=== PATIENT | female | born 1965 | race Caucasian/White ===

== ENCOUNTER 2025-03-11 22:36 | Emergency (ER) | payer MEDICAID, SELFPAY ==
[2025-03-11 22:41] VITALS: BP 114/77; PULSE 138; RESP 18; TEMP 36.4; O2SAT 95; BMI 30.7
--- OUTSIDE RECORDS SUMMARY | 2025-03-11 23:33 | XMS_ITS | Clinical Summary ---
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 Starting tomorrow. 4 Active ticagrelor (BRILINTA) 90 MG tabletIndication s:ST elevation myocardial infarction involving right coronary artery (H) Take 1 tablet (90 mg) by mouth 2 times daily. Dose to start this evening. 180 tablet 3 4 Active atorvastatin (LIPITOR) 80 MG tabletIndication s:ST elevation myocardial infarction involving right coronary artery (H) Take 1 tablet (80 mg) by mouth daily. 90 tablet 3 4 Active lisinopril (ZESTRIL) 5 MG tabletIndication s:ST elevation myocardial infarction (STEMI), unspecified artery (H) Take 1 tablet (5 mg) by mouth daily. 30 tablet 4 Active metoprolol tartrate (LOPRESSOR) 25 MG tabletIndication s:ST elevation myocardial infarction (STEMI), unspecified artery (H) Take 1 tablet (25 mg) by mouth 2 times daily. 60 tablet 4 Active Active Problems Problem Noted Date Diagnosed Date Percutaneous transluminal coronary angioplasty s tatus 06/01/2024 ST elevation myocardial infa rction involving right coronary artery 06/01/2024 Cervical incompetence, delivered 03/11/2002 Tobacco use disorder 03/11/2002 Family History Medical History Relation Comments Heart Disease Father [place] age 57 Hypertension Father Cancer No family hx of Relation Status Comments Father Social History Tobacco Use Types Packs/Day Years Used Date Smoking Tobacco: Every Day Cigarettes 0.5 10 Alcohol Use Standard Drinks/Week Comments No 0 (1 standard drink = 0.6 oz pur e alcohol) Food Insecurity Answer Date Recorded Within the past 12 months, d id you worry that your food would run out before you got money to buy more? No 06/02/2024 Within the past 12 months, d id the food you bought just not last and you didn t have money to get more? No 06/02/2024 Housing Stability Answer Date Recorded Do you have housing? (Denilson judd is defined as stable permanent housing and does not include staying outside in a car, in a tent, in an abandoned building, in an overnight [place] [facility], or couch-surfing.) No 06/02/2024 Are you worried about losing your housing? No 06/02/2024 Financial Resource Strain Answer Date R ecorded Within the past 12 months, h ave you or your family members you live with been unable to get utilities (heat, electricity) when it was really needed? No 06/02/2024 Transportation Needs Answer Date Record ed Within the past 12 months, h as lack of transportation kept you from medical appointments, getting your medicines, non-medical meetings or appointments, work, or from getting things that you need? No 06/02/2024 Interpersonal Safety Answer Date Record ed Do you feel physically and e motionally safe where you currently live? Yes 06/02/2024 Within the past 12 months, h ave you been hit, slapped, kicked or otherwise physically hurt by someone? No 06/02/2024 Within the past 12 months, h ave you been humiliated or emotionally abused in other ways by your partner or ex-partner? No 06/02/2024 Comments No Sex and Gender Information Value Date Recorded Sex Assigned at Not on file Legal Sex Female 3:23 AM AEROPHYSICIST Gender Identity Not on file Sexual Orientation Not on file Last Filed Vital Signs Vital Sign Reading Time Taken Comments Blood Pressure 121/73 06/03/2024 7:58 AM AEROPHYSICIST Pulse 60 06/03/2024 7:58 AM AEROPHYSICIST Temperature 36.6 C (97.8 F) 06/03/2024 7:58 AM AEROPHYSICIST Respiratory Rate 16 06/03/2024 7:58 AM AEROPHYSICIST Oxygen Saturation 96% 06/03/2024 7:58 AM AEROPHYSICIST Inhaled Oxygen Concentration - - Weight 79.4 kg (175 lb 0.7 oz) 06/01/2024 9:08 A M AEROPHYSICIST Height 157.5 cm (5' 2) 06/01/2024 11:48 AM AEROPHYSICIST Body Mass Index 32.02 06/01/2024 9:08 AM AEROPHYSICIST Plan of Treatment Health Maintenance Due Date Last Done Comments ADVANCE CARE PLANNING 1967 ANNUAL REVIEW OF HM ORDERS 1967 CT COLONOGRAPHY 1967 FIT 1967 FLEX SIG 1967 NICOTINE/TOBACCO CESSATION COUNSELING Q 1 YR 1967 sDNA (Cologuard) 1967 YEARLY PREVENTIVE VISIT 1970 COLONOSCOPY 1977 COLORECTAL CANCER SCREENING 1977 HIV SCREENING 1982 HEPATITIS C SCREENING 1985 HEPATITIS B VACCINE (1 of 3 - 19+ 3-dose series) 1986 PNEUMOCOCCAL VACCINE 50+ YEARS (1 of 2 - PCV) 1986 PAP 1988 DTAP/TDAP/TD VACCINE (1 - Tdap) 1992 MAMMO SCREENING 05/12/2010 05/12/2008 LUNG CANCER SCREENING 2017 ZOSTER VACCINE (1 of 2) 2017 COVID-19 VACCINE (1 - 2023-2 5 season) 2024 PHQ-2 (once per calendar year) 2024 INFLUENZA VACCINE (#1) 2025 LIPID 06/01/2025 06/01/2024 DIABETES SCREENING 06/03/2027 06/03/2024, 06/02/2024, 06/01/2024 HPV VACCINE (No Doses Required) Completed MENINGITIS VACCINE Aged Out No longer eligible based on patient's age to complete this topic Medical Devices Implanted Type Area Interventional Cardiologist Device Identifier Shelf Expiration Date Model / Serial / Lot Stent Coronary Angus Synergy Xd Mr Us [id number] - [id number] Implanted:Qty: 1 on 06/01/2024 at [facility] [employer] (ANGUS) [employer] 09/29/2024 [id number] / / [id number] Procedures Procedure Name Priority Date/Time Associated Diagnosis Comments BASIC METABOLIC PANEL Routine 06/03/2024 8:11 AM AEROPHYSICIST LIPID PROFILE Add-On 06/01/2024 7:43 AM AEROPHYSICIST HC CAD, DIAGNOSTIC MAMMO, W/WO DIGITIZATION Routine 05/12/2008 1:39 PM CDT from Last 3 Months or Most Recently Relevant to Health Maintenance Results * Basic metabolic panel (06/03/2024 8:11 AM AEROPHYSICIST) Sodium 139 135 - 145 mmol/L 06/03/2024 8:53 AM [facility] Potassium 3.8 3.4 - 5.3 mmol/L 06/03/2024 8:53 AM [facility] Chloride 106 98 - 107 mmol/L 06/03/2024 8:53 AM [facility] Carbon Dioxide (CO2) 22 22 - 29 mmol/L 06/03/2024 8:53 AM [facility] Anion Gap 11 7 - 15 mmol/L 06/03/2024 8:53 AM [facility] Urea Nitrogen 10.3 6.0 - 20.0 mg/dL 06/03/2024 8:53 AM [facility] Creatinine 0.87 0.51 - 0.95 mg/dL 06/03/2024 8:53 AM [facility] GFR Estimate 78 >60 mL/min/1.7 3m2 06/03/2024 8:53 AM [facility] Comment:eGFR calculated usin 2020 CKD-EPI equation. Calcium 8.8 8.8 - 10.4 mg/dL 06/03/2024 8:53 AM [facility] Comment:Reference intervals for this test were updated on 02/09/2024 to reflect our healthy population more accurately. There may be differences in the flagging of prior results with similar values performed with this method. Those prior results can be interpreted in the context of the updated reference intervals. Glucose 93 70 - 99 mg/dL 06/03/2024 8:53 AM AEROPHYSICIST [facility] Blood STRUCTURE OF LEFT HAND / Unknown Venipuncture / Unknown 06/03/2024 8:11 AM AEROPHYSICIST 06/03/2024 8:26 AM AEROPHYSICIST us Henok Mcgill DO LAB - BLOOD ORDERABLES Fi nal Result [facility] [address] Lab (1st floor, no room number) [place] [id number] * (ABNORMAL) Lipid Profile (06/01/2024 7:43 AM AEROPHYSICIST) Cholesterol 179 <200 mg/dL 06/01/2024 5:38 PM AEROPHYSICIST [facility] Triglycerides 71 <150 mg/dL 06/01/2024 5:38 PM AEROPHYSICIST [facility] Direct Measure HDL 42(L) >=50 mg/dL 06/01/2024 5:38 PM AEROPHYSICIST [facility] LDL Cholesterol Calculated 123(H) <100 mg/dL 06/01/2024 5:38 PM AEROPHYSICIST [facility] Non HDL Cholesterol 137(H) <130 mg/dL 06/01/2024 5:38 PM AEROPHYSICIST [facility] Blood BLOOD SPECIMEN / Unknown Venipuncture / Unknown 06/01/2024 7:43 AM AEROPHYSICIST 06/01/2024 7:52 AM AEROPHYSICIST Narrative [facility] - 06/01/2024 5:38 PM AEROPHYSICIST Cholesterol Desirable: < 200 mg/dL Borderline High: 200 - 239 mg/dL High: >= 240 mg/dL Triglycerides Normal: < 150 mg/dL Borderline High: 150 - 199 mg/dL High: 200-499 mg/dL Very High: >= 500 mg/dL Direct Measure HDL Female: >= 50 mg/dL Male: >= 40 mg/dL LDL Cholesterol Desirable: < 100 mg/dL Above Desirable: 100 - 129 mg/dL Borderline High: 130 - 159 mg/dL High: 160 - 189 mg/dL Very High: >= 190 mg/dL Non HDL Cholesterol Desirable: < 130 mg/dL Above Desirable: 130 - 159 mg/dL Borderline High: 160 - 189 mg/dL High: 190 - 219 mg/dL Very High: >= 220 mg/dL us Ana Rosales PA-C LAB - BLOOD ORDERABLES F inal Result [facility] [address] [facility]. [facility] Building, Room [address] [place] [id number], [facility] * COMPUTER AIDED MAMMOGRAPHY, DIAGNOSTIC (05/12/2008 1:39 PM CDT) Anatomical Region Laterality Modality Other 05/12/2008 1:39 PM CDT Impressions 05/12/2008 2:12 PM CDT EXAM: Diagnostic bilateral digital mammogram. Right breast ultrasound. HISTORY/PREVIOUS MAMMOGRAPHY: Right breast pain. BREAST PARENCHYMA: Heterogeneously dense FINDINGS: There is a faint oval density in the upper right breast on mammography. Ultrasound demonstrates a cluster of cysts versus a thinly septated cyst at the 11:00 position of the breast 3 cm minimal. This is felt to be benign. This corresponds with the mammographic abnormality. Otherwise negative bilateral exam. No abnormality identified in the region of pain in the upper-outer right breast. Any further evaluation should be based on clinical findings and clinical suspicion. IMPRESSION: Category 2. Benign finding. Note: CAD (computer aided diagnosis) was utilized in interpretation of this mammogram. Lou Frazier MD MAMMOGRAPHY Edite d from Last 3 Months or Most Recently Relevant to Health Maintenance Insurance [employer] Advance Directives For more information, please contact: [phone] * Full Code (Latest Code Status on File) Date Activated Date Inactivated Comments 06/01/2024 10:40 AM 06/03/2024 1:57 PM All basic a nd advanced life-sustaining interventions are performed as appropriate Question Answer Comments Code status determined by: Discussion with ankure nt/ legal decision maker Care Teams Loft Patternmaker Relationship Specialty Start Date End Date No Ref-Primary, Physician PCP - General 06/01/24
--- OUTSIDE RECORDS SUMMARY | 2025-03-11 23:33 | XMS_ITS | Clinical Summary ---
Author Organization [facility] Address [address] [place] [id number] Care Team Providers Care Superintendent Production Name Role Phone Pcp, No Primary Care Provider Unavailabl e Allergies Active Allergy Reactions Criticality Noted Date Comments Mushroom Hives,Edema 02/04/2025 Medications aspirin chewable 81 mg tablet Chew 81 mg by mouth once daily with a meal. 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 02/22/2025 Overview (02/22/2025): 02/15/25 HSIL suspicious for Invasion Provider plan : Referral to [facility] Encounters Date Type Department Care Team Description 03/09/2025 Telephone [facility] [address] [place] [address] Frederick Eng MD PIERCE FORM NEEDED 03/07/2025 Patient Outreach [facility] Care Management - Care Management Navigation/[facility] [address] [place] [address] Elliot Mo[facility] Navigation 02/28/2025 1:00 PM CDT Ancillary Procedure [facility] [address] [place] [phone] 02/28/2025 Travel 02/23/2025 Travel 02/22/2025 Lab Requisition [facility] [phone] Shilpa Espino MD 02/22/2025 Transcribe Orders [facility] MD [phone] Shilpa Espino MD 02/22/2025 Telephone [facility] [address] [place] [address] Frederick Eng MD Results 02/20/2025 Telephone [facility] [address] [place] [address] Frederick Eng MD Pap Plan 02/15/2025 3:00 PM CDT Office Visit [facility] [address] [place] [address] Frederick Eng MD Consult 02/14/2025 Travel 02/06/2025 Telephone [facility] [address] [place] [address] Yanira Leblanc PA Results 02/04/2025 3:55 PM CDT Office Visit [facility] [address] [facility] [phone] Eulalio Herman PA Hematuria 02/04/2025 Travel from Last 3 Months Social History Tobacco Use Types Packs/Day Years Used Date Smoking Tobacco: Never Smokeless Tobacco: Never Tobacco Cessation:Counseling Given: Not Answered Alcohol Use Standard Drinks/Week Comments Not Currently 0 (1 standard drink = 0.6 oz pur e alcohol) PHQ-2 Answer Date Recorded PHQ-2 TOTAL SCORE 1 02/15/2025 Social Connections Answer Date Recorded Do you often feel lonely or isolated from those around you? 0 02/04/2025 Financial Resource Strain Answer Date R ecorded Difficulty of Paying Living Expenses 1 02/04/2025 Difficulty of Paying Living Expenses 2 02/04/2025 Food Insecurity Answer Date Recorded Do you worry your food will run out before you are able to buy more? 1 02/04/2025 Transportation Needs Answer Date Record ed Does lack of transportation keep you from medica l appointments? 1 02/04/2025 Does lack of transportation keep you from work, meetings or getting things that you need? 1 02/04/2025 Housing Stability Answer Date Recorded What is your housing situation today? 1 02/04/2025 Utilities Answer Date Recorded Do you have trouble paying f or utilities (for example, heat, electricity, water, phone)? 1 02/04/2025 Comments No Sex and Gender Information Value Date Recorded Sex Assigned at Not on file Legal Sex Female 3:50 PM CDT Gender Identity Not on file Sexual Orientation Not on file Obstetrics History Last Filed Vital Signs Vital Sign Reading Time Taken Comments Blood Pressure 132/74 02/15/2025 3:03 PM CDT Pulse 107 02/04/2025 4:08 PM CDT Temperature 36.1 C (97 F) 02/04/2025 4:08 PM CDT Respiratory Rate 22 02/04/2025 4:08 PM CDT Oxygen Saturation 98% 02/04/2025 4:08 PM CDT Inhaled Oxygen Concentration - - Weight 78.3 kg (172 lb 9.6 oz) 02/15/2025 3:03 P M CDT Height 157.5 cm (5' 2) 02/15/2025 3:03 PM CDT Body Mass Index 31.57 02/15/2025 3:03 PM CDT Plan of Treatment Upcoming Encounters Date Type Department Care Team (Late st Contact Info) Description 03/21/2025 11:00 AM CDT Appointment [facility] [address] [place] [address] Health Maintenance Due Date Last Done Comments COVID-19 vaccine series (#1) 1972 Tetanus booster 1978 HIV for age 15-65 1982 Hepatitis C screening for age 18-79 1985 Hepatitis B series for 19+ ( 1 of 3 - 19+ 3-dose series) 1986 Pneumococcal series for age 50+ (1 of 2 - PCV) 1986 Zoster (shingles) series for age 50+ (1 of 2) 1986 Colonoscopy through age 75 2012 Lipids for age 45-75 2012 Mammogram for age 45-75 2012 Influenza Vaccine (#1) 2025 BMI (ht and wt on same day) for age 18+ 02/15/2026 0 02/15/2025 Depression screening for age 12+ 02/15/2026 02/16/20 25 Pap test for age 21-65 02/16/2028 02/15/2025, 2024 Procedures Procedure Name Priority Date/Time Associated Diagnosis Comments MR PELVIS OVARY OR UTERUS WWO Routine 02/28/2025 1:36 PM CDT Cervical mass PATH TISSUE EXAM Routine 02/22/2025 1:51 PM CDT Dysplasia of cervix uteri, unspecified [facility] THIN PREP PAP DIAGNOSTIC IMAGED Routine 02/15/2025 4:21 PM CDT Post-menopausal bleeding Cervical mass HPV HIGH RISK Routine 02/15/2025 4:21 PM CDT Post-menopausal bleeding Cervical mass PATH TISSUE EXAM Routine 02/15/2025 3:00 PM CDT Post-menopausal bleeding Cervical mass URINE CULTURE Routine 02/04/2025 4:20 PM CDT Hematuria, unspecified type UA W/ SEDIMENT EXAM REFLEXED PER CRITERIA STAT 02/04/2025 4:20 PM CDT Hematuria, unspecified type from Last 3 Months Results * MR PELVIS OVARY OR UTERUS WWO (02/28/2025 1:36 PM CDT) Anatomical Region Laterality Modality Pelvis, UTERUS Magnetic Resonan ce 02/28/2025 1:36 PM CDT Impressions 03/01/2025 1:27 PM CDT 1. Large cervical mass (7.7 cm) with left anteroinferior parametrial invasion with tumor extending to and contacting the left inferior posterior bladder and left distal ureter. No upstream ureteral dilatation. 2. Indeterminate, prominent bilateral obturator and left external iliac lymph nodes measuring up to 0.7 cm. Narrative 03/01/2025 1:27 PM CDT For Patients: As a result of the Cures Act, medical imaging exams and procedure reports are released immediately into your electronic medical record. You may view this report before your referring provider. If you have questions, please contact your health care provider. EXAM: MR PELVIS OVARY OR UTERUS WWO LOCATION: [facility] DATE: 02/28/2025 INDICATION: Cervical mass. COMPARISON: None. TECHNIQUE: Routine MRI female pelvis protocol including T1 in/out phase, diffusion, thin section high resolution multiplane T2, and post contrast T1. CONTRAST: Clariscan 15 mL. FINDINGS: UTERUS/CERVIX: Lobular mass occupying essentially the entire cervix from the internal os to the upper vagina measuring approximately 5.3 x 6.8 x 7.7 cm. Left anteroinferior parametrial invasion with tumor extending and contacting (loss of fat plane) the posterior left bladder (04/18) and left ureter (04/18; 05/23). No significant upstream ureteral dilatation on this study. The cervical mass abuts the rectum (04/25), however without definite invasion. ENDOMETRIUM: 3 mm in thickness. The junctional zone is within normal limits. ADNEXA: Unremarkable. ADDITIONAL FINDINGS: No significant free fluid. Bilateral obturator lymph nodes measuring up to 0.7 cm (). Left external iliac lymph node measuring 0.7 cm. Posterior bilateral acetabular T2 hyperintense, enhancing observation measuring 1.2 cm on the left (12/18) and 1.4 cm on the right () with high ADC signal is technically indeterminate, although more favored to be benign. Consider attention on follow-up. No destructive osseous lesion. Procedure Note Robinson Cain MD - 03/01/2025 For Patients: As a result of the Century Cures Act, medical imagingexams and procedure reports are released immediately into your electronicmedical record. You may view this report before your referring provider.If you have questions, please contact your health care provider. EXAM: MR PELVIS OVARY OR UTERUS WWO LOCATION: [facility] DATE: 02/28/2025 INDICATION: Cervical mass. COMPARISON: None. TECHNIQUE: Routine MRI female pelvis protocol including T1 in/out phase,diffusion, thin section high resolution multiplane T2, and post contrastT1. CONTRAST: Clariscan 15 mL. FINDINGS: UTERUS/CERVIX: Lobular mass occupying essentially the entire cervix fromthe internal os to the upper vagina measuring approximately 5.3 x 6.8 x7.7 cm. Left anteroinferior parametrial invasion with tumor extending andcontacting (loss of fat plane) the posterior left bladder (04/18) and leftureter (04/18; 05/23). No significant upstream ureteral dilatation on thisstudy. The cervical mass abuts the rectum (04/25), however without definiteinvasion. ENDOMETRIUM: 3 mm in thickness. The junctional zone is within normallimits. ADNEXA: Unremarkable. ADDITIONAL FINDINGS: No significant free fluid. Bilateral obturator lymphnodes measuring up to 0.7 cm (). Left external iliac lymph nodemeasuring 0.7 cm. Posterior bilateral acetabular T2 hyperintense, enhancing observationmeasuring 1.2 cm on the left (12/18) and 1.4 cm on the right () withhigh ADC signal is technically indeterminate, although more favored to bebenign. Consider attention on follow- up. No destructive osseous lesion. IMPRESSION: 1. Large cervical mass (7.7 cm) with left anteroinferior parametrialinvasion with tumor extending to and contacting the left inferiorposterior bladder and left distal ureter. No upstream ureteral dilatation. 2. Indeterminate, prominent bilateral obturator and left external iliaclymph nodes measuring up to 0.7 cm. us Shilpa Espino MD MR Final Resu lt * PATH TISSUE EXAM (02/22/2025 1:51 PM CDT) Only the most recent of2 resultswithin the time period is included. Case Report Pathology Report Case: [id number] Authorizing Provider: Shilpa Espino MD Collected: 02/22/2025 1351 Ordering [facility] Received: 02/23/2025 0737 Pathologist: Viki Townsend MD Specimen: Cervical 02/27/2025 9:12 AM CDT [facility] Final Diagnosis A) UTERINE CERVIX, BIOPSY: 1. 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 Measurement of tumor size and depth of invasion deferred to clinical exam 2. See comment 02/27/2025 9:12 AM CDT [facility] at 0912 CDT Comment The biopsy fragments are replaced by invasive squamous cell carcinoma that is well-differentiat ed with pseudoglandular/a denoid features. Measurement is deferred due to the clinical lesion approximately 6 cm, much larger than the greatest dimension of the biopsy (1 cm). Case seen in consultation with Dr. Garcia. Dr. Garcia provided an Epic message to Dr. Espino regarding the final pathologic diagnosis on 02/27/25 at 09:10AM. 02/27/2025 9:12 AM CDT [facility] Clinical Information HSIL with features suspicious for invasion on Pap 02-15-2025, negative HPV. [id number] at least HSIL, highly concerning for carcinoma 6-7 o'clock cervical biopsy, p16 positive, p53 normal. Exam note describes an at least 6 cm upper cervical mass funneling into the lower uterine segment. 2 biopsies were obtained. Bimanual and rectovaginal examination performed and revealed no evidence of extension into the parametria or upper vagina. 02/27/2025 9:12 AM CDT [facility] Gross Description A) Received in formalin, labeled with the patient's name and cervical biopsy, are 2 carty mucosal fragments ranging from 0.9-1.0 cm. The specimen is submitted in toto in one cassette. ADK 02/23/2025 02/27/2025 9:12 AM CDT [facility] Microscopic Description The final diagnosis is based on microscopic examination of appropriate sections of all specimens. 02/27/2025 9:12 AM CDT [facility] Additional Information Interpreted at [facility], Central Laboratory - [address], [place] [address] 02/27/2025 9:12 AM CDT [facility] ENTRAL LABORAT[facility] Other (Cervical) Client Collect / Unknown 02/22/2025 1:51 PM CDT 02/23/2025 7:37 AM CDT us Shilpa Espino MD PATHOLOGY/CYTOLOGY Final R esult [facility] [address] [place] [address], [place] * (ABNORMAL) [facility] THIN PREP PAP DIAGNOSTIC IMAGED (02/15/2025 4:21 PM CDT) Case Report Gynecologic Cytology Report Case: [id number] Authorizing Provider: Frederick Eng Collected: 02/15/2025 1621 MD Nara Ordering Location: [facility] Received: 02/15/2025 1621 Clinic First Screen: Kenneth Santizo Pathologist: Marta Stratton MD Specimen: [facility] ThinPrep Vial Diagnostic, Cervical 02/20/2025 2:46 PM CDT [facility] ENTRAL LABORATORY INTERPRETATION/ RESULT HIGH GRADE SQUAMOUS INTRAEPITHELIAL LESION (HSIL) W/ FEATURES SUSPICIOUS FOR INVASION(A) (none) 02/20/2025 2:46 PM CDT [facility] ENTRCT LABORATORY at 1446 CDT SPECIMEN ADEQUACY Satisfactory for evaluation Endocervical component present 02/20/2025 2:46 PM CDT [facility] HPV REQUEST HPV and PAP 02/20/2025 2:46 PM CDT [facility] ENTRAL LABORATORY Date of LMP 201702/20/2025 2:46 PM CDT [facility] EN[facility]AL LABORATORY Last Pap Date 199902/20/2025 2:46 PM CDT [facility] EN[facility] LAB[facility] Last Pap Result NIL 2:46 PM CDT [facility] EN[facility]AL LAB[facility]ATORY Abnormal Pap or [place] Bx in last 5 years No 02/20/2025 2:46 PM CDT [facility] EN[facility]AL LABORATORY Menstrual Status Postmenopausal 02/20/2025 2:46 PM CDT [facility] ENTRAL LABORATORY [place] Bx Done Today No 02/20/2025 2:46 PM CDT [facility] ENTR[facility] LABORATORY Additional Information None Given 02/20/2025 2:46 PM CDT [facility] ENTRCT LABORATORY Comment: Cytology is screened at [facility] - [address], [place] [address] and [facility] - [address], [place] [address] and [facility] - [address] [place] [address] Interpreted at [facility] - [address], [place] [address] Automated Review Successful 02/20/2025 2:46 PM CDT [facility] ENTRCT LABORATORY Comment:Specimen processed s uccessfully by automated non profit financial controller device, [employer], [employer] ANCILLARY TESTING [facility] HPV Ordered, Please see separate report 02/20/2025 2:46 PM CDT [facility] Note Case seen in consultation with Dr. Singh. The pap test is a screening technique, not a diagnostic procedure. It is used primarily to screen for squamous cancers and precursor lesions. Published studies have shown that it is subject to both false negative and false positive results. The pap test should not be used as the sole means to diagnose or exclude pre-malignant and malignant lesions. 02/20/2025 2:46 PM CDT [facility] Other (Cervical) Non-Blood / Unknown 02/15/2025 4:21 PM CDT 02/15/2025 4:21 PM CDT Frederick Eng MD PATHOLOGY/C YTOLOGY Final Result [facility] [address] [place] [address], [place] * HPV HIGH RISK (02/15/2025 4:21 PM CDT) TYPE 16 Negative Negative 02/20/2025 12:37 PM CDT [facility] TR[facility] LABORATORY TYPE 18 Negative Negative 02/20/2025 12:37 PM CDT [facility] TRAL LABORATORY OTHER HIGH RISK TYPES Negative Negative 02/20/2025 12:37 PM CDT [facility] TR[facility] LABORATORY Other (Cervical) Non-Blood / Unknown 02/15/2025 4:21 PM CDT 02/16/2025 2:23 PM CDT Narrative [facility] - 02/20/2025 12:37 PM CDT HPV types 16, 18, 31, 33, 35, 39, 45, 51, 52, 56, 58, 59, 66 and 68 DNA were undetectable or below the pre-set threshold. Methodology: Kika Mitchell 4800 HPV Test us Frederick Eng MD MICROBIOLOG Y Final Result Performing Organization Address [facility]/ZIP Co de Phone Number [facility] [address] [place] [address], [place] * URINE CULTURE [64339.2] - routine (02/04/2025 4:20 PM CDT) CULTURE No growth (<1,000 CFU/mL) 02/05/2025 6:37 PM CDT [facility] Urine URINE SPECIMEN / Unknown Non-Blood / Unknown 02/04/2025 4:20 PM CDT 02/04/2025 4:20 PM CDT us Palmira Gilman MD MICROBIOLOGY Final Result Performing Organization Address [facility] [[email or web address]] Co de Phone Number [facility] [address] [place] [address], [place] * (ABNORMAL) UA W/ SEDIMENT EXAM REFLEXED PER CRITERIA [65633.2] (02/04/2025 4:20 PM CDT) COLOR YELLOW YELLOW 02/04/2025 4:44 PM CDT [facility] SPECIFIC GRAVITY < OR = 1.005 1.001 - 1.035 02/04/2025 4:44 PM CDT [facility] PH 6.0 5.0 - 8.0 02/04/2025 4:44 PM CDT [facility] PROTEIN NEGATIVE NEGATIVE 02/04/2025 4:44 PM CDT [facility] GLUCOSE NEGATIVE NEGATIVE 02/04/2025 4:44 PM CDT [facility] KETONES NEGATIVE NEGATIVE 02/04/2025 4:44 PM CDT [facility] BILIRUBIN NEGATIVE NEGATIVE 02/04/2025 4:44 PM CDT [facility] OCCULT BLOOD 2+(A) NEGATIVE 02/04/2025 4:44 PM CDT [facility] NITRITE NEGATIVE NEGATIVE 02/04/2025 4:44 PM CDT [facility] LEUKOCYTE ESTERASE TRACE(A) NEGATIVE 02/04/2025 4:44 PM CDT [facility] APPEARANCE CLEAR CLEAR 02/04/2025 4:44 PM CDT [facility] WBC UA 0-5 < OR = 5 /HPF 02/04/2025 4:44 PM CDT [facility] RBC UA 3-10(A) < OR = 2 /HPF 02/04/2025 4:44 PM CDT [facility] SQUAMOUS EPITHELIAL CELLS UA 0-5 < OR = 5 /HPF 02/04/2025 4:44 PM CDT [facility] BACTERIA UA NONE SEEN NONE SEEN /HPF 02/04/2025 4:44 PM CDT [facility] NOTE UA SEE NOTE 02/04/2025 4:44 PM CDT [facility] Comment: This urine was analyzed for the presence of WBC, RBC, bacteria, casts, and other formed elements. Only those elements seen were reported. Urine URINE SPECIMEN / Unknown Non-Blood / Unknown 02/04/2025 4:20 PM CDT 02/04/2025 4:20 PM CDT us Palmira Gilman MD URINE Final Result [facility] [address] [place] [address], [place] [phone] [facility] [address] [place] [address], [place] from Last 3 Months Care Teams Superintendent Production Relationship Specialty Start Date End Date Pcp, No . PCP - General 7/12/25
[2025-03-11] MEDS: CYCLOBENZAPRINE HCL 10 MG TABLET PO (23:34)
[2025-03-11] MEDS: ONDANSETRON ODT 4 MG TAB PO (23:35)
[2025-03-11] MEDS: DOCUSATE SODIUM 100 MG CAPSULE 200 MG PO (23:36)
--- NOTE | 2025-03-11 23:39 | ED_ITS ---
HPI - General Adult General Chief complaint: Abdominal Pain Stated complaint: Abdominal pain Time Seen by Provider: 03/11/25 22:54 Source: patient and family Mode of arrival: ambulatory Limitations: no limitations History of Present Illness HPI narrative: 59-year-old female presents to the emergency department for evaluation of pelvic pain this is been going on for a couple of weeks. She has had a pretty bumpy m edical during as of recent. She had pelvic pressure and ultimately had a urinalysis that did not show any signs of infection. A pelvic exam was then performed as she had some pain radiating to the back and a large fungating cervical mass was seen. She was referred to gynecology were was appropriately biopsied. She was referred to Oncology where it was again biopsied. It sounds as though there was some bleeding with that episode and was treated in the office and she was advised to start an antibiotic. She has been noticing some blackish discharge which she was told would be normal, it sounds like it is related to the Lugol's solution. She elected not to take the antibiotics, rationale for that is unclear. She was also referred for an MRI. We have some very limited records on all this, just the notes from [facility] as most of her care is through the [facility] she reports. She does bring in her phone and is able to show me an MRI report from last week. Thankfully this shows this 7 cm cervical mass which was known but it shows that it does not seem to invade the ureters, there is no hydronephrosis, there is no rectal invasion. There are some enlarged lymph nodes but no signs of ascites. There is some abutting of the bladder wall, it sounds as though her oncology team is moving forward with treatment and she is planning to start radiation soon. She is not vomiting. Her bowels are moving normally. She is emptying her bladder. She is not noticing any hematuria. She does have a little bit of bloody vaginal discharge but not any severe bleeding. There is no fever. Her oncology team started her on tramadol but she reports that after taking it 1 or 2 times per day for the 1st few days, she did not find it effective in called again and they advised her to add in Tylenol and ibuprofen. She is worried about taking ibuprofen because she had a heart attack 9 months ago and is unsure if the ibuprofen is really safe. She is admittedly seems very overwhelmed. She has been sleeping well the last few nights and reports that she was given a prescription for Ambien which she tried twice and did not find it effective. Has not tried other sleep aids. She comes to an ED as a new patient completely to our health system in the middle of the night. Records are quite limited. She reports that the past medical history is notable for an CO back in May, it sounds like she had a stent but is now only treated with aspirin. No beta blockers, no NAWAF-inhibitor and no other blood thinners. Her only current home meds are prescription for the tramadol and the recent Ambien. Allergies to codeine, only causing nausea. ROS is notable for the ongoing pelvic pain which is not different in any way that it has been in the last couple of weeks since multiple subspecialty evaluations. Also the insomnia which is also unchanged. ROS is otherwise negative times 12 systems. Related Data Home Medications ?Medication ?Instructions ?Recorded ?Confirmed tramadol 50 mg tablet 50 mg PO Q6H PRN 03/11/25 Allergies Allergy/AdvReac Type Severity Reaction Status Date / Time codeine AdvReac Nausea Verified 03/11/25 22:45 PFSH [facility] Medical History (Updated 03/11/25 @ 23:56 by Radha Franklin MD) Cervical cancer ?C53.9 - Malignant neoplasm of cervix uteri, unspecified (ICD-10) Exam Const: Vital Signs, click to edit/add: Vital Signs - 24 hr 03/11/25 22:41 03/11/25 23:47 Temperature 97.6 F Pulse Rate [Pulse Oximeter] 138 H 106 H Respiratory Rate 18 18 Blood Pressure [Ri ght Upper Arm] 114/77 Pulse Oximetry 95 95 Oxygen Delivery Me thod Room Air Documenting provider has reviewed patient's vital signs: yes Common normals: alert General appearance: cooperative Other: Anxious, seems a little overwhelmed but is redirectable. Polite and cooperative. No signs of narcotic-seeking behavior. HENMT: Common normals: normocephalic, moist oral mucous membranes and oropharynx normal Head and scalp: normocephalic Eye: Common normals: conjunctivae normal General eye: normal appearance of both eyes Conjunctiva: conjunctiva(e) normal Neck & C-Spine: Common normals: full ROM and no lymphadenopathy Resp: Common normals: normal respiratory effort, no use of accessory muscles and clear to auscultation bilaterally Effort & inspection: able to speak in complete sentences Auscultation: clear to auscultation bilaterally Cardio: Common normals: regular rate, regular rhythm, S2 normal heart sound and no murmurs Rate: regular rate Rhythm: regular rhythm Heart sounds: S2 normal GI: Common normals: Normal to inspection, nondistended, normoactive bowel sounds present, soft to palpation and no hepatosplenomegaly Palpation: soft and no hepatosplenomegaly Other: Lower pelvic fullness with mild tenderness. Mainly just in the suprapubic region. No rebound tenderness or guarding. : Common normals: no CVA tenderness Bladder/kidney exam: no CVA tenderness Back & Pelvis: Common normals: no CVA tenderness Extremity: Common normals: normal to inspection and normal capillary refill Neuro: Sensorium/orientation: alert Speech: speech normal Psych: Appearance: grossly normal Attitude: engaged Mood and affect: anxious Insight: fair Judgement: fair Skin: Common normals: no rashes or lesions noted General skin exam: no rashes or lesions noted Course Course ED Course: 59-year-old female with ongoing pelvic pain in the setting of recent cervical cancer. Symptoms have been stable, no sudden worsening tonight. There is no signs of urinary obstruction, vomiting, bowel obstruction. Bowels have been moving very well, is not having any increased vaginal bleeding, dysuria, fever, vomiting or other signs of complication. It sounds as though she is having some trouble getting her medications titrated for comfort and presents to the ED not out of a new sign of complication but more so just out of feeling overwhelmed. Patient is reassured that her vitals are stable, she is not showing any signs of infection or a surgical emergency. I review her recent imaging and I do have a note from her oncologist documenting the symptoms that she is describing as well. We reviewed the treatment plan as below. First, I let patient know that her oncology and gynecology team is will have a hard time finding my notes so it is important that she since the messages to communicate the small changes that I am proposing today. She verbalizes that she will do that. Acutely in the ED she is given a small dose of lorazepam, 1 tablet of oxycodone, Flexeril, stool softener and Zofran. I counseled her that it is important that we are only changing a few medications at the time as I do not want to confuse the picture of what is helpful in what is not. The tramadol has not been effective for her. I did reassure her that 9 months out from her M I, it is okay for her to use NSAIDs if she is in pain. We reviewed proper dosing and taking it with food to minimize GI upset. Ibuprofen 400-600 mg every 6 hours can be taken for discomfort. Instead of tramadol, I am switching her to hydrocodone 1 tablet every 4 hours as needed, max of 6 per day. Limited supply of 12 tablets is given here in the ED and counseled that I cannot refill this if she runs out so it is important that she is in communication with her oncology team right away Thursday on what the next step in plan would be and for refills if needed. I am hesitant to prescribe antianxiety medication until we know how she tolerates the narcotics therefore will prescribe Flexeril 10 mg at bedtime and can take another tablet during the day if needed but is intended mainly just for bedtime. Counseled on use of stool softeners, MiraLax if needed. I did advise her that I want her taking the antibiotic that was prescribed as well. If she does not find the Flexeril effective, it is okay to also take the Ambien with the Flexeril starting tomorrow. We reviewed the alarm symptoms that would warrant ED presentation. She verbalizes good understanding and agreement of those. Written instructions provided, all questions answered. Vital Signs Vital signs: Initial Vital Signs Temperature 97.6 F 03/11/25 22:41 Temperature Source Temporal Artery Scan 03/11/25 22:41 Pulse Rate 138 H 03/11/25 22:41 Respiratory Rate 18 03/11/25 22:41 Blood Pressure 114/77 03/11/25 22:41 Blood Pressure Mean 89 03/11/25 22:41 Blood Pressure Position Sitting 03/11/25 22:41 Pulse Oximetry 95 03/11/25 22:41 Oxygen Delivery Method Room Air 03/11/25 22:41 Vital Signs Temperature 97.6 F 03/11/25 22:41 Pulse Rate 138 H 03/11/25 22:41 Respiratory Rate 18 03/11/25 22:41 Blood Pressure 114/77 03/11/25 22:41 Pulse Oximetry 95 03/11/25 22:41 Oxygen Delivery Method Room Air 03/11/25 22:41 Temperature 97.6 F 03/11/25 22:41 Pulse Rate 106 H 03/11/25 23:47 Respiratory Rate 18 03/11/25 23:47 Blood Pressure 114/77 03/11/25 22:41 Pulse Oximetry 95 03/11/25 23:47 Oxygen Delivery Method Room Air 03/11/25 22:41 Medications Administered Medications: Generic Name Dose Route Start Last Admin Trade Name Rayray PRN Reason Stop Dose Admin Cyclobenzaprine HCl 10 mg 03/11/25 23:21 03/11/25 23:34 Cyclobenzaprine Hcl 10 Mg Tablet PO 03/11/25 23:22 10 mg ONCE ONE Administration Docusate Sodium 200 mg 03/11/25 23:22 03/11/25 23:36 Docusate Sodium 100 Mg Capsule PO 03/11/25 23:23 200 mg ONCE ONE Administration Lorazepam 1 mg 03/11/25 23:21 03/11/25 23:35 Lorazepam 1 Mg Tablet PO 03/11/25 23:22 1 mg ONCE ONE Administration Ondansetron HCl 4 mg 03/11/25 23:22 03/11/25 23:35 Ondansetron Odt 4 Mg Tab PO 03/11/25 23:23 4 mg ONCE ONE Administration Oxycodone HCl 5 mg 03/11/25 23:21 03/11/25 23:35 Oxycodone 5 Mg Tablet PO 03/11/25 23:22 5 mg ONCE ONE Administration Discharge Plan Discharge Clinical Impression: Pelvic pain Patient Disposition: Home w/ Parent or Adult Condition: Stable Instructions: Pelvic Pain (ED) Additional Instructions: As we discussed, there are no signs of obstruction based on your exam today. I am thankful that it sounds like you have had a very thorough workup for this and your care team has a plan to continue treatment for the next steps. I am sorry that the tramadol was not more effective for you. There certainly are stronger options but as all things in medicine, there may be side effects and we just half to work together to try to find the best balance for you. In the emergency room, you were given a dose of an anti nausea medicine, a gentle anxiety medicine, 1 pain pill, stool softeners and a muscle relaxant. This combination tends to be very helpful a getting the pain under control and also helping people sleep. It can be difficult to know which medicines were most helpful for you, especially change too many things at once. For now, I want to reassure you that the ibuprofen is safe to continue taking. Try to take it with food to avoid stomach irritation. Proper dosing for you would be 600 mg of ibuprofen every 6 hours. I do want you to take the antibiotics that you were prescribed by the screen repairer crusher. Instead of the tramadol, I have given you hydrocodone. You may take 1 tablet up to every 4 hours with a max of 6 per day for now. If 1 tablet is not as effective in you find taking 2 tablets up to 3 times daily is better for you, this is okay to do but tried to use the minimum amount that you need to keep your pain at a reasonable level. I am not able to see how much of the Ambien your given, as we do not share records with your primary care team. This can be frustrating, I understand. I am giving her prescription for some Flexeril which is a muscle relaxant that can be very sedating and many people find it helpful for sleep. You may use 1 tablet at bedtime but I have also written it to work could be used during the day if needed. Consider just using half a tablet during the day if you find it to sedating. Most people tend to only needed at nighttime as an adjunct to their pain medicine to help them sleep. The MRI report that you showed me did not make it seem as though there has been any signs that the tumor is starting to press on the rectum or urinary drainage system. This is great news. Make sure that your bowels are moving well, if not, consider adding in a daily stool softener to help with this. Remember that the pain medicines can be quite constipating. Consider using daily MiraLax if the Colace is not effective. Last, it is really important that you are in communication with her primary care team about what we are doing since they will not be able to see my notes. Let them know that you were seen in the emergency room and there were not any obvious signs of obstruction. You were advised to restart your antibiotics, you were given hydrocodone for your pain and Flexeril to help you sleep. If the Flexeril is not effective, you can switch back to the Ambien combined with Flexeril. Make sure that you are updating your team right away as you will only have a few days supply of the medication. We cannot refill pain medicines here in the emergency department for you and coordination 3 your primary care team is important. Prescriptions: No Action tramadol 50 mg tablet 50 mg PO Q6H PRN Follow Up/Referrals: Provider,Not a Local [Primary Care Provider, Family Practice] Stand Alone Forms: [employer] Info Instructions
[2025-03-11 23:47] VITALS: PULSE 106; RESP 18; O2SAT 95
== END 2025-03-12 00:02 | disposition home or self-care (01) ==
PROVIDERS: Emergency Provider Family Medicine
DX: R10.2 Pelvic and perineal pain (principal)
CPT/HCPCS: 99283; A9270